=== PATIENT | female | born 1955 | race Caucasian/White ===

== ENCOUNTER 2021-09-09 13:36 | Outpatient (CLI) | payer MEDICARE, OTHER | END 2021-09-09 13:37 | disposition home or self-care (01) | LOC: CSHMAMMO 13:36 | PROVIDERS: ATTEND Obstetrics & Gynecology | DX: Z12.31 Encounter for screening mammogram for malignant neoplasm of breast (principal); Z80.3 Family history of malignant neoplasm of breast | CPT/HCPCS: 77063; 77067 ==

== ENCOUNTER 2022-10-28 12:47 | Outpatient (CLI) | payer MEDICARE, OTHER | END 2022-10-28 12:48 | disposition home or self-care (01) | LOC: CSHMAMMO 12:47 | PROVIDERS: ATTEND Obstetrics & Gynecology | DX: Z12.31 Encounter for screening mammogram for malignant neoplasm of breast (principal); Z80.3 Family history of malignant neoplasm of breast | CPT/HCPCS: 77063; 77067 ==

== ENCOUNTER 2022-11-10 11:13 | Outpatient (CLI) | payer MEDICARE, OTHER | END 2022-11-10 11:14 | disposition home or self-care (01) | LOC: CSHMAMMO 11:13 | PROVIDERS: ATTEND Obstetrics & Gynecology | DX: Z13.820 Encounter for screening for osteoporosis (principal); M85.89 Other specified disorders of bone density and structure, multiple sites; Z78.0 Asymptomatic menopausal state | CPT/HCPCS: 77080 ==